=== PATIENT | female | born 1975 | race Two or more races ===

== ENCOUNTER → 2024-08-29 | Emergency (ER) | payer OTHER ==
[~2024-08-29] VITALS: Ht 157.5 cm; Wt 170.1 kg
[~2024-08-29] MED LIST: CEFTRIAXONE SODIUM 2,000 MG VIAL IV ONE; ELIQUIS5 MG PO; LOSARTAN-HCTZ1 EAC1 PO
== END | disposition home or self-care (01) ==
LOC: ER 10:20
DX: I89.0 Lymphedema, not elsewhere classified (principal); I10 Essential (primary) hypertension

== ENCOUNTER 2024-10-20 10:57 | Inpatient (IN) | payer OTHER ==
[~2024-10-20] VITALS: Ht 167.6 cm; Wt 168.3 kg
[~2024-10-20 10:57] MED LIST changes: -CEFTRIAXONE SODIUM 2,000 MG VIAL IV ONE
--- NOTE | 2024-10-20 11:38 | NUR ---
SE RECIBE FEMINA ALERTA Y ORIENTADA X3 CAUL REFIERE PRESENTA PEQUENAS ULCERAS EN AMBAS PIERNAS QUE PRESENTA CULTIVO POSITIVO A PSEUDOMONAS. PTE DE DR.MUNOZ VEGA. SE IRVING S/V Y SE UBICA.
--- NOTE | 2024-10-20 13:20 | NUR ---
SE REALIZA LAB CROW ORDEN MEDICA BAJO MEDIDAS ASEPTICAS. SE ORIENTA A PTE QUIEN REFIERE ENTENDER Y ACEPTAR.
[2024-10-20 13:28] LABS: HEMOGLOBIN 11.9 g/dL (12.0-15.00); MEAN CELL VOLUME 82.4 fL (80.00-100.00); MEAN CORPUSCULAR HEMOGLOBIN 27.1 pg (27.00-32.0); MEAN CORPUSCULAR HGB CONC 32.9 g/dl (32.0-36.0); PLATELET COUNT 348 K/uL (150-450); RED BLOOD COUNT 4.37 M/uL (4.00-6.00); RED CELL DISTRIBUTION WIDTH 15.4 % (11.5-14.5)
[2024-10-20 13:46] LABS: INR 1.03; PROTHROMBIN TIME 11.2 SECONDS (9.0-11.5)
[2024-10-20 13:59] LABS: ALBUMIN 3.7 gm/dL (3.4-5.0); BILIRUBIN TOTAL 0.51 mg/dL (0.3-1.2); BILIRUBIN,CONJUGATED 0.16 mg/dL (0.0-0.2); BILIRUBIN,UNCONJUGATED 0.35 mg/dL (0.0-0.6); CREATININE SERUM 0.52 mg/dL (0.55-1.02); GFR 124.32; GLOBULINA 3.8 G/DL (2.4-3.5); POTASSIUM 3.87 mEq/L (3.5-5.1); TOTAL PROTEIN 7.5 gm/dL (6.4-8.2)
[2024-10-20] MEDS ORDERED: PIPERACILLIN/TAZOBACTAM SODIUM 3.375 GM in 0.9 % SODIUM CHLORIDE 100 ML IV SCH (14:00)
[2024-10-20] MEDS ORDERED: RINGERS SOLUTION,LACTATED 1,000 ML IV SCH (14:00)
[2024-10-20 14:09] LABS: CHOL HDL RATIO 2.2 (0-5.0); TSH 0.861 uIU/mL (0.358-3.74)
[2024-10-20 14:21] LABS: C-REACTIVE PROTEIN 0.51 MG/DL (0.00-0.29)
[2024-10-20 14:51] LABS: COVID-19 AG NEGATIVE (NEGATIVE)
[2024-10-20 15:37] VITALS: BP 130/80
[2024-10-20] MEDS ORDERED: APIXABAN 5 MG TABLET PO SCH (17:00)
[2024-10-20 20:39] VITALS: BP 149/92
[2024-10-21 01:06] VITALS: BP 111/64; O2SAT 97
[2024-10-21 08:00] VITALS: BP 164/99
[2024-10-21] MEDS ORDERED: LOSARTAN/HYDROCHLOROTHIAZIDE 1 TAB TABLET PO SCH (09:00)
[2024-10-21] MEDS ORDERED: PANTOPRAZOLE SODIUM 40 MG TABLET.DR PO SCH (09:00)
[2024-10-21] MEDS ORDERED: IRON FUM,PS/FOLIC/BCOMP,C NO.9 1 CAP CAPSULE PO SCH (17:00)
[2024-10-21] MEDS ORDERED: NIFEDIPINE 30 MG TAB.SA.OSM PO SCH (17:25)
[2024-10-21 18:23] VITALS: BP 140/77; O2SAT 98
[2024-10-22 02:57] VITALS: BP 127/68
[2024-10-22 09:09] VITALS: BP 134/80; O2SAT 96
[2024-10-22] MEDS ORDERED: PIPERACILLIN/TAZOBACTAM SODIUM 3.375 GM VIAL IV ONE (16:27)
[2024-10-22 17:57] VITALS: BP 147/77; O2SAT 100
[2024-10-23 02:15] VITALS: BP 115/64; O2SAT 94
[2024-10-23 08:35] VITALS: BP 157/76; O2SAT 97
[2024-10-23] MEDS ORDERED: HYDROCHLOROTHIAZIDE 12.5 MG CAPSULE PO STA (15:46)
[2024-10-23] MEDS ORDERED: PIPERACILLIN/TAZOBACTAM SODIUM 3.375 GM in 0.9 % SODIUM CHLORIDE 100 ML IV SCH (18:00)
[2024-10-23 18:39] VITALS: BP 112/75
[2024-10-24 03:09] VITALS: BP 114/66; O2SAT 99
[2024-10-24] MEDS ORDERED: LOSARTAN/HYDROCHLOROTHIAZIDE 1 UDTAB TABLET PO SCH (09:00)
[2024-10-24 09:33] LABS: HEMATOCRIT 36.6 % (36.0-45.00); HEMOGLOBIN 12.2 g/dL (12.0-15.00); MEAN CELL VOLUME 82.6 fL (80.00-100.00); MEAN CORPUSCULAR HEMOGLOBIN 27.6 pg (27.00-32.0); MEAN CORPUSCULAR HGB CONC 33.5 g/dl (32.0-36.0); PLATELET COUNT 367 K/uL (150-450); RED BLOOD COUNT 4.43 M/uL (4.00-6.00); RED CELL DISTRIBUTION WIDTH 15.6 % (11.5-14.5)
[2024-10-24 10:36] LABS: ALBUMIN 3.6 gm/dL (3.4-5.0); BILIRUBIN TOTAL 0.85 mg/dL (0.3-1.2); CALCIUM 9.1 mg/dL (8.5-10.1); CREATININE SERUM 0.56 mg/dL (0.55-1.02); GFR 114.13; GLOBULINA 3.5 G/DL (2.4-3.5); POTASSIUM 4.34 mEq/L (3.5-5.1); TOTAL PROTEIN 7.1 gm/dL (6.4-8.2)
[2024-10-24 19:05] VITALS: BP 130/84
[2024-10-25 02:09] VITALS: BP 111/69; O2SAT 96
[2024-10-25 09:14] VITALS: BP 133/80
[2024-10-25] MEDS ORDERED: ELIQUIS5 MG PO (15:47)
[2024-10-25] MEDS ORDERED: LOSARTAN-HCTZ1 EAC2 PO (15:47)
[2024-10-25] MEDS ORDERED: INTEGRA PLUS C1 EACH PO (15:47)
[2024-10-25] MEDS ORDERED: NIFEDIPINE ER30 M1 PO (15:48)
== END 2024-10-25 16:49 | disposition home or self-care (01) | DRG 593 ==
LOC: ER 10:58 → MEDI 14:52 → MEDJ 10-22 22:33
PROVIDERS: Emergency Medicine; ADMIT Internal Medicine; ATTEND Internal Medicine
DX: L97.929 Non-pressure chronic ulcer of unspecified part of left lower leg with unspecified severity (principal); Z68.42 Body mass index [BMI] 45.0-49.9, adult; L97.919 Non-pressure chronic ulcer of unspecified part of right lower leg with unspecified severity; I10 Essential (primary) hypertension; B96.5 Pseudomonas (aeruginosa) (mallei) (pseudomallei) as the cause of diseases classified elsewhere; E66.813 Obesity, class 3